=== PATIENT | male | born 1970 | race Caucasian/White ===

== ENCOUNTER 2016-09-17 21:48 | Emergency (ER) | payer OTHER ==
[2016-09-17 22:13] LABS: BASOPHIL# 0.1 X 10^3uL (0.0-0.1); BASOPHILS 0.7 % (0.0-2.0); EOSINOPHILS 1.2 % (0.0-6.0); EOSINOPHILS# 0.1 X 10^3uL (0.0-0.4); HEMATOCRIT 41.5 % (42.0-54.0); HEMOGLOBIN 14.6 g/dL (14.0-18.0); LYMPHOCYTES 32.7 % (20.0-40.0); LYMPHOCYTES# 2.7 X 10^3uL (0.8-3.8); MEAN CELL VOLUME 92.7 fL (80.0-100.0); MEAN CORPUS. HGB CONCENTRATION 35.1 g/dL (32.0-36.0); MEAN CORPUSCULAR HEMOGLOBIN 32.5 pg (29.0-35.0); MEAN PLATELET VOLUME 6.9 fL (7.4-10.4); MONOCYTES# 0.6 X 10^3uL (0.2-1.0); NEUTROPHILS 58.4 % (54.0-75.0); NEUTROPHILS# 4.8 X 10^3uL (2.6-6.7); RED BLOOD COUNT 4.47 X 10^6uL (4.20-6.10); RED CELL DISTRIBUTION WIDTH 12.6 % (11.5-14.5); WHITE BLOOD COUNT 8.3 X 10^3uL (3.9-10.7)
[2016-09-17 22:21] LABS: ALBUMIN 4.7 g/dL (3.5-5.0); BILIRUBIN, DIRECT 0.1 mg/dL (0.0-0.4); BILIRUBIN, TOTAL 0.5 mg/dL (0.2-1.3); CALCIUM 9.4 mg/dL (8.4-10.2); MAGNESIUM 1.9 mg/dL (1.6-2.3); POTASSIUM 3.9 mmol/L (3.5-5.1); TOTAL PROTEIN 7.6 g/dL (6.3-8.2)
[2016-09-17] MEDS ORDERED: ONDANSETRON HCL 4 MG/2 ML VIAL ONE ×2 (22:21→23:30)
[2016-09-17] MEDS ORDERED: LORazepam 2 MG/ML INJ ONE (22:22)
--- NOTE | 2016-09-18 00:23 | CT REPORT ---
EXAMINATION: CT OF THE ABDOMEN AND PELVIS WITHOUT IV CONTRAST INDICATION: EtOH abuse. TECHNIQUE: Transaxial images of the abdomen and pelvis were obtained from the diaphragmatic dome to t he ischial tuberosity according to routine noncontrast abdomen and pelvis protocol, without administr ation of intravenous contrast material. This examination was performed using automated exposure contr ol, adjustment of mA or kV according to patient size, and/or use of iterative reconstruction techniqu e. COMPARISON: None FINDINGS: Limited evaluation of solid viscera and vascular structures lacking intravenous contrast. Liver: Slight blunting of the liver may reflect chronic liver disease. Bile ducts: No intra- or extra-hepatic dilation. Gallbladder: No gallstones or wall thickening. Pancreas: Normal non-contrast appearance. Spleen: No splenomegaly. Adrenals: Normal adrenal glands. Kidneys/Ureters/Urinary Bladder: Non-contrast profile of kidneys appears normal. No hydronephrosis. U rinary bladder is thin walled and distended Reproductive organs: Prostate is normal in size. GI tract/Mesentery: Normal appendix. No obstruction. Vascular: Aorta and IVC non-contrast appearance is normal. Peritoneum/retroperitoneum: No free fluid or free air. Lymph Nodes: No evidence of significant lymphadenopathy in the abdomen within the limitations of a no n-contrast scan. Superficial Soft Tissue: Normal. Bones: Bones appear normal without evidence of acute fractures. Lung Bases: The demonstrated lung bases are clear. IMPRESSION: 1. Slight blunting of the liver may reflect chronic liver disease. 2. Otherwise grossly normal noncontrast CT abdomen pelvis. Final Electronic Signature: This report was electronically signed by Stanton Burks MD on 7 12:20 AM. valerie /
--- NOTE | 2016-09-18 01:42 | ER NURSING DOCUMENTATION ---
Nurse's Notes [facility] Name:Teddy Hendricks Age:45 yrs Sex:Male :1970 Arrival Date:09/17/2016 Time:21:48 BedTrauma-A Private MD: Diagnosis:Alcohol (ETOH) Intoxication, Nondependent;Abdominal Pain, Left Upper Quadrant Presentation: 09/17 21:49 Acuity: BERTO 2 rh 21:51 Presenting complaint: Patient states: LUQ pain today. Recent pancreatitis lpr hospitalization one week ago. Presented to [facility] and was sent to ED for pain. Drinks 1/2 pint of Vodka most days. Transition of care: [facility]. 21:51 Method Of Arrival: Walk In lpr Triage Assessment: 21:58 General: Appears uncomfortable, Behavior is cooperative, crying. Pain: Complains of lpr pain in left upper quadrant. EENT: Oral mucosa is moist. Neuro: Level of Consciousness is awake, alert, obeys commands, Oriented to person, place, time, event. Cardiovascular: Chest pain is denied. Respiratory: Airway is patent Respiratory effort is even, unlabored, Respiratory pattern is regular, symmetrical. GI: Reports upper abdominal pain. GI: Abdomen is non- distended Abdomen is tender to palpation in left upper quadrant. : No deficits noted. Derm: Skin is intact, is healthy with good turgor. Musculoskeletal: Circulation, motion, and sensation intact Capillary refill < 3 seconds. Historical: - Allergies: No known drug Allergies; - Home Meds: 1. lisinopril HCTZ 2 tabs twice a day 2. omeprazole 20 mg oral cpDR 1 cap once daily 3. toujeo every morning 4. Humalog subcutaneous - PMHx: HYPERTENSION; Diabetes - IDDM; - PSHx: ankle; - Tetanus: < 10 years. - Ebola Screening: : No symptoms or risks identified at this time. . - Immunization history: Flu Vaccine unknown. - Social history: Smoking status: Patient states former smoker of tobacco. Screenin:00 Infectious Disease Risk None. Abuse screen: Denies threats or abuse. Nutritional lpr screening: No deficits noted. Assessment: 22:00 See Triage Assessment done by same RN. lpr Vital Signs: 21:52 BP 122 / 87; Pulse 109; Resp 18; Temp 98.2; Pulse Ox 93% on R/A; Weight 75.75 kg; em1 Height 5 ft. 4 in. (162.56 cm); Pain 7/10; 22:56 BP 108 / 83; Pulse 100; Resp 15; Pulse Ox 94% on R/A; rh 09/18 00:59 BP 126 / 86; Pulse 88; Resp 18; Pulse Ox 97% on R/A; bw2 09/17 21:52 Body Mass Index 28.67 (75.75 kg, 162.56 cm) em1 ED Course: 09/17 21:49 Patient arrived in ED. ma1 21:49 Triage completed. rh 21:56 Erasto Rogers MD is Attending Physician. tl1 22:00 Valuables Remains with patient Patient has correct armband on for positive lpr identification. engine monitor on. Pulse ox on. NIBP on. 22:01 Inserted saline lock: 20 gauge in left hand and blood collected. lpr 22:30 Adrianne Cunningham is Primary Nurse. rh 22:46 Report given to Belkys Castellanos RN. lpr 23:26 Oxygen Oxygen administration via nasal cannula @ 2L/min. rh 09/18 00:[address] dnn 00:19 Patient moved back from [address]. dnn Administered Medications: 09/17 22:10 Drug: NS 0.9% 1000 ml; Route: IV; Rate: bolus; Site: left hand; mv 09/18 01:00 Follow up: IV Status: Completed infusion 2 09/17 22:17 Drug: Dilaudid 1 mg; Route: IVP; Site: left hand; mv 22:55 Follow up: Response: Pain is decreased rh 22:19 Drug: Zofran 8 mg; Route: IVP; Infused Over: 2 mins; Site: left hand; mv 22:55 Follow up: Response: No adverse reaction rh 22:22 Drug: Ativan 1 mg; Route: IVP; Site: left hand; mv 22:55 Follow up: Response: Anxiety decreased rh 23:25 Drug: Dilaudid 1 mg; Route: IVP; Site: left hand; 09/18 00:37 Follow up: Response: Pain is decreased 2 01:23 Drug: Dilaudid 1 mg; Route: IVP; Site: right hand; 2 01:23 Follow up: Response: No adverse reaction [facility] Point of Care Testing: Blood Glucose: 09/17 21:57 Blood Glucose: 218 mg/dL; em1 Ranges: Intake: 09/18 01:01 IV: 2000ml (NS); Total: 2000ml. 2 Outcome: 00:59 Discharge ordered by . 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 medication usage, Demonstrated understanding of instructions, Prescriptions given X 1. 01:41 Patient left the ED. 2 Signatures: Shweta Phan RN RN lpr Bhaskar Schaefer [facility], [employer] em1 Erasto Rogers MD MD tl1 Adrianne Cunningham margaux mv Wisely, Beth bw2 Svetlana Alanis [facility]
--- NOTE | 2016-09-20 01:42 | ER PHYSICIAN DOCUMENTATION ---
Physician Documentation [facility] Name:Teddy Hendricks Age:45 yrs Sex:Male :1970 Arrival Date:09/17/2016 Time:21:48 BedTrauma-A Private MD: Erasto Alvarez Disposition: 09/18/16 00:59 Discharged to Home/Self Care. Impression: Alcohol (ETOH) Intoxication, Nondependent, Abdominal Pain, Left Upper Quadrant. - Condition is Good. - Discharge Instructions: ABDOMINAL PAIN, Unkown Cause, (Male), Abuse, Alcohol - ALCOHOL INTOXICATION. - Prescriptions for Zofran 4 mg Oral Tablet - take 1-2 tablet by ORAL route every 4-6 hours As needed; 10 tablet. - Medical Reconciliation form form. - Follow up: Private Physician; When: 4- 6 days; Reason: Recheck today's complaints. - Problem is new. - Symptoms have improved. - Notes: YOU DO NOT APPEAR TO HAVE PANCREATITIS OR ANOTHER EMERGENCY MEDICAL CONDITION AT THIS TIME. YOU SHOULD BE SAFE FOR ADMISSION TO [facility]. RETURN FOR ANY NEW OR WORSENING CONCERNS. HPI: 09/17 22:00 This 45 yrs old Male presents to ER via Walk In with complaints of ETOH Abuse.tl1 22:00 The patient presents to the emergency department with a history of substance abuse, tl1 Type: whisky. Historical: - Allergies: No known drug Allergies; - Home Meds: 1. lisinopril HCTZ 2 tabs twice a day 2. omeprazole 20 mg oral cpDR 1 cap once daily 3. toujeo every morning 4. Humalog subcutaneous - PMHx: HYPERTENSION; Diabetes - IDDM; - PSHx: ankle; - Tetanus: < 10 years. - Ebola Screening: : No symptoms or risks identified at this time. . - Immunization history: Flu Vaccine unknown. - Social history: Smoking status: Patient states former smoker of tobacco. Vital Signs: 21:52 BP 122 / 87; Pulse 109; Resp 18; Temp 98.2; Pulse Ox 93% on R/A; Weight 75.75 kg; em1 Height 5 ft. 4 in. (162.56 cm); Pain 7/10; 22:56 BP 108 / 83; Pulse 100; Resp 15; Pulse Ox 94% on R/A; rh 09/18 00:59 BP 126 / 86; Pulse 88; Resp 18; Pulse Ox 97% on R/A; 2 09/17 21:52 Body Mass Index 28.67 (75.75 kg, 162.56 cm) em1 MDM: 09/17 21:56 Patient medically screened. [facility] 09/17 22:24 Order name: CBC AUTO DIF, MDIF/RMOR IF IND; Complete Time: 23:52 EDMS 09/17 23:50 Interpretation: WHITE BLOOD COUNT 8.3; HEMOGLOBIN 14.6; HEMATOCRIT 41.5; PLATELET COUNT tl1 422. 09/17 22:25 Order name: BASIC METABOLIC PANEL; Complete Time: 23:52 EDMS 09/17 23:51 Interpretation: SODIUM 146; POTASSIUM 3.9; CHLORIDE 101; CARBON DIOXIDE 20; GLUCOSE tl1 220; BLOOD UREA NITROGEN 26; CREATININE 1.4; EST GLOMERULAR FILTRATION RATE 59; CALCIUM 9.4. 09/17 22:25 Order name: MAGNESIUM; Complete Time: 23:52 EDMS 09/17 23:51 Interpretation: Normal: MAGNESIUM 1.9. [facility] 09/17 22:25 Order name: HEPATIC PANEL; Complete Time: 23:52 EDMS 09/17 23:51 Interpretation: Normal. [facility] 09/17 22:25 Order name: LIPASE; Complete Time: 23:52 EDMS 09/17 23:51 Interpretation: Normal: LIPASE 51. [facility] 09/17 22:25 Order name: ETHYL ALCOHOL; Complete Time: 23:52 EDMS 09/17 23:51 Interpretation: Abnormal: ETHYL ALCOHOL 217. [facility] 09/18 00:25 Order name: CAT SCAN; ABDOMEN W/SUZAN [id number] [facility] 09/17 21:50 Order name: I & O; Complete Time: 21:53 rh 09/17 21:50 Order name: NPO; Complete Time: 21:53 rh 09/17 21:50 Order name: Pulse Ox Continuous; Complete Time: 21:53 09/17 23:26 Order name: Oxygen; Complete Time: 23:26 rh Dispensed Medications: 22:10 Drug: NS 0.9% 1000 ml; Route: IV; Rate: bolus; Site: left hand; mv 09/18 01:00 Follow up: IV Status: Completed infusion [facility] 09/17 22:17 Drug: Dilaudid 1 mg; Route: IVP; Site: left hand; mv 22:55 Follow up: Response: Pain is decreased rh 22:19 Drug: Zofran 8 mg; Route: IVP; Infused Over: 2 mins; Site: left hand; mv 22:55 Follow up: Response: No adverse reaction rh 22:22 Drug: Ativan 1 mg; Route: IVP; Site: left hand; mv 22:55 Follow up: Response: Anxiety decreased rh 23:25 Drug: Dilaudid 1 mg; Route: IVP; Site: left hand; 09/18 00:37 Follow up: Response: Pain is decreased 2 01:23 Drug: Dilaudid 1 mg; Route: IVP; Site: right hand; bw2 01:23 Follow up: Response: No adverse reaction bw2 Point of Care Testing: Blood Glucose: 09/17 21:57 Blood Glucose: 218 mg/dL; em1 Ranges: Critical Glucose Levels:Adult <50 mg/dl or >400 mg/dl <40 mg/dl or >180 mg/dl Signatures: Shweta Phan RN RN lpr Leigh, Tom, MD MD tl1 Adrianne Cunningham loretta nevarez Julee Castellanosh bw2
== END 2016-09-18 01:42 | disposition home or self-care (01) ==
LOC: EEVIPCON 21:48 → ER 21:48
DX: F10.129 Alcohol abuse with intoxication, unspecified (principal); R10.12 Left upper quadrant pain; I10 Essential (primary) hypertension; E11.65 Type 2 diabetes mellitus with hyperglycemia; Z79.899 Other long term (current) drug therapy; Z79.4 Long term (current) use of insulin
CPT/HCPCS: 74150; 80048; 80076; 80320; 83690; 83735; 85025; 96361; 96374; 96375; 96376; 99285; J1170; J2060; J2405